=== PATIENT | female | born 1980 | race Caucasian/White ===

== ENCOUNTER 2023-07-31 01:05 | Emergency (ER) | payer OTHER, SELFPAY ==
--- NOTE | ~2023-07-31 | XR_ITS ---
XR chest 2V DATE: 07/31/2023 02:34 INDICATION: Chest pain TECHNIQUE: PA and lateral views COMPARISON: None FINDINGS: Normal heart size. No hilar or mediastinal enlargement. No pulmonary infiltrate or consolid ation, pleural effusion or pulmonary vascular congestion or pneumothorax is detected. Included skelet al structures are unremarkable. IMPRESSION: Negative Reviewed, dictated and finalized at location A. [employer] A[employer] IMPRESSION: Negative
--- NOTE | 2023-07-31 01:09 | ECG_ITS ---
Measurements Intervals [place] Rate: 92 P: 50 LA: 124 QRS: 34 QRSD: 85 T: 26 QT: 381 QTc: 473 Interpretive Statements SINUS RHYTHM WITH MARKED SINUS ARRHYTHMIA BORDERLINE ST ABNORMALITY- ANTERIOR LEADS BASELINE ARTIFACT- I, II, III, AVR, AVL, AVF BORDERLINE ECG NO PREVIOUS ECG AVAILABLE FOR COMPARISON Electronically Signed On 07-31-2023 9:24:03 [employer] REPAIR by Ramy Gipson D.O.
[2023-07-31 01:10] VITALS: BP 133/94; PULSE 84; RESP 19; TEMP 36.5; O2SAT 99
[2023-07-31 01:38] LABS: Basophils Absolute Auto 0.1 K/mm3 (0.0-0.1); Basophils Percent Auto 0.6 % (0.2-1.2); Eosinophils Percent Auto 0.1 % (0-4.4); Hematocrit 41.7 % (37.0-47.0); Hemoglobin 13.5 g/dL (12.0-15.0); Immature Granulocyte Absolute 0.04 K/mm3 (0.00-0.031); Immature Granulocyte Percent A 0.3 % (0-0.5); Lymphocytes Absolute Auto 1.69 K/mm3 (0.9-3.2); Lymphocytes Percent Auto 13.3 % (18.3-44.2); Mean Corpuscular HGB Conc 32.4 g/dl (32-36); Mean Corpuscular Hemoglobin 29.7 pg (26-34); Mean Corpuscular Volume 91.9 fl (80-100); Mean Platelet Volume 11.3 fl (7.4-10.4); Monocytes Absolute Auto 0.7 K/mm3 (0.1-0.6); Monocytes Percent Auto 5.5 % (2.6-8.5); Neutrophils Absolute Auto 10.2 K/mm3 (1.3-6.7); Neutrophils Percent Auto 80.2 % (45.5-73.1); Platelet Count Result 230 k/mm3 (150-375); Red Blood Count 4.54 M/mm3 (4.2-5.4); Red Cell Distribution Width 13.2 % (11.5-14.5); White Blood Count 12.7 K/mm3 (4.5-10.0)
[2023-07-31 01:49] LABS: Prothrombin Time 13.3 Seconds (11.1-14.7)
[2023-07-31 01:50] LABS: Partial Thromboplastin Time 27.3 SECONDS (22.3-36.8)
[2023-07-31] MEDS: ONDANSETRON INJ 4 MG/2 ML VIAL IV PUSH (01:51)
[2023-07-31] MEDS: MORPHINE SULFATE (*CRX) 4 MG/ML INJ IV PUSH (01:51)
[2023-07-31] MEDS: NITROGLYCERIN SL 0.4 MG TABLET SUBLINGUAL (01:52)
[2023-07-31 01:54] VITALS: BP 111/77; PULSE 90; RESP 22; O2SAT 100
[2023-07-31 01:59] LABS: Troponin I < 0.012 ng/mL (0.000-0.034)
[2023-07-31 02:00] VITALS: BP 121/82; PULSE 97; RESP 18; O2SAT 100
[2023-07-31 02:01] LABS: Alanine Aminotransferase 24 U/L (6-35); Albumin Level 4.9 g/dL (3.5-5.1); Alkaline Phosphatase 133 U/L (38-126); Anion Gap 15 mmol/L (8-16); Aspartate Amino Transferase 39 U/L (14-36); Bilirubin,Total 0.8 mg/dL (0.2-1.3); Blood Urea Nitrogen 17 mg/dL (7-17); Calcium 9.9 mg/dL (8.4-10.2); Carbon Dioxide 23 mmol/L (22-30); Chloride 103 mmol/L (98-107); Estimated CRCL calculation 66 ml/min; Estimated Glomerular Filt Rate > 60; Glucose 136 mg/dL (65-110); Lipase 49 U/L (23-300); Potassium 3.4 mmol/L (3.4-5.0); Sodium 141 mmol/L (137-145)
--- NOTE | 2023-07-31 03:29 | ED.GENADULT ---
HPI - General Adult General Chief complaint: Chest Pain Stated complaint: cp midsternal non radiating Time Seen by Provider: 07/31/23 01:16 History of Present Illness HPI narrative: This 43-year-old female who presents emergency department chief complaint of chest pain. 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 The patient reports that she had some arm tingling and muscle spasms whenever it started the patient did not have any shortness of breath denies diaphoresis did report she took some Tums nitro and reports that she took 4 baby aspirin. The patient reports that she has no prior history of cardiac disease Related Data Allergies Allergy/AdvReac Type Severity Reaction Status Date / Time No Known Allergies Allergy Verified 07/31/23 01:18 Review of Systems Review of Systems: A 10 system review of systems was completed on the patient and is negative except for what is stated in the HPI. Nursing and ancillary documentation was reviewed. Exam Narrative: GENERAL: Well-appearing, well-nourished, and in no acute distress. HEAD: Normocephalic, atraumatic. EYES: PERRLA and EOMI. ENT: Nares clear, no rhinorrhea or epistaxis. Mucous membranes moist. NECK: Supple. CHEST: Clear to auscultation. No respiratory distress. HEART: Regular rate and rhythm. No murmur heard. Normal peripheral pulses. ABDOMEN: Soft, nontender, nondistended, normal active bowel sounds. EXTREMITIES: Normal range of motion. No edema. SKIN: Warm, dry, no rash. NEURO: No focal deficits. Alert and oriented x3. PSYCH: Normal mood and affect. Course Vital Signs Vital signs: Vital Signs Temperature 36.5 C 07/31/23 01:10 Pulse Rate 84 07/31/23 01:10 Respiratory Rate 19 07/31/23 01:10 Blood Pressure 133/94 H 07/31/23 01:10 Pulse Oximetry 99 07/31/23 01:10 Oxygen Delivery Room Air 07/31/23 01:10 Temperature 36.5 C 07/31/23 01:10 Pulse Rate 79 07/31/23 03:46 Respiratory Rate 15 07/31/23 03:43 Blood Pressure 133/87 07/31/23 03:43 Pulse Oximetry 100 07/31/23 03:43 Oxygen Delivery Room Air 07/31/23 01:10 Medical Decision Making MDM Narrative Medical decision making narrative: Differential diagnosis includes ACS, atypical chest pain, reflux, esophageal spasm EKG showed no acute ischemic changes Laboratory studies were obtained showed initial troponin negative lipase was normal patient did have a slight elevation in her alkaline phosphatase and her AST was slightly elevated at 39. Delta troponin was negative. The patient is currently asymptomatic Vital Signs Vital Signs: Vital Signs Temperature 36.5 C 07/31/23 01:10 Pulse Rate 84 07/31/23 01:10 Respiratory Rate 19 07/31/23 01:10 Blood Pressure 133/94 H 07/31/23 01:10 Pulse Oximetry 99 07/31/23 01:10 Oxygen Delivery Room Air 07/31/23 01:10 Temperature 36.5 C 07/31/23 01:10 Pulse Rate 79 07/31/23 03:46 Respiratory Rate 15 07/31/23 03:43 Blood Pressure 133/87 07/31/23 03:43 Pulse Oximetry 100 07/31/23 03:43 Oxygen Delivery Room Air 07/31/23 01:10 Lab Data 07/31/23 01:32 07/31/23 01:32 Labs: Lab Results 07/31/23 07/31/23 Range/Units 01:32 04:09 WBC 12.7 H (4.5-10.0) K/mm3 RBC 4.54 (4.2-5.4) M/mm3 Hgb 13.5 (12.0-15.0) g/dL Hct 41.7 (37.0-47.0) % MCV 91.9 (80-100) fl MCH 29.7 (26-34) pg MCHC 32.4 (32-36) g/dl RDW 13.2 (11.5-14.5) % Plt Count 230 (150-375) k/mm3 MPV 11.3 H (7.4-10.4) fl Immature Gran % (Auto) 0.3 (0-0.5) % Neut % (Auto) 80.2 H (45.5-73.1) % Lymph % (Auto) 13.3 L (18.3-44.2) % Stewart % (Auto) 5.5 (2.6-8.5) % Eos % (Auto) 0.1 (0-4.4) % Baso % (Auto) 0.6 (0.2-1.2) % Lymph # (Auto) 1.69 (0.9-3.2) K/mm3 Stewart # (Auto) 0.7 H (0.1-0.6) K/mm3 Eos # (Auto) 0.0 (0-0.3) K/mm3 Baso # (Auto) 0.1 (0.0-0
[2023-07-31] MEDS: PANTOPRAZOLE SODIUM IV 40 MG VIAL IV PUSH (03:41)
[2023-07-31 03:43] VITALS: BP 133/87; PULSE 78; RESP 15; O2SAT 100
[2023-07-31 03:46] VITALS: PULSE 79
[2023-07-31 04:35] LABS: Troponin I < 0.012 ng/mL (0.000-0.034)
[2023-07-31] MEDS: BELLADONNA ALK/PHENOB ELIX 10 ML, MAG HYDROX/ALUMINUM HYD/SIMETH 30 ML, LIDOCAINE HCL 2... PO (04:36)
[2023-07-31 05:26] VITALS: BP 130/91; PULSE 83; RESP 15; O2SAT 96
== END 2023-07-31 05:55 | disposition home or self-care (01) ==
PROVIDERS: Emergency Provider Emergency Medicine
DX: R07.9 Chest pain, unspecified (principal)
CPT/HCPCS: 36415; 71046; 80053; 83690; 84484; 85025; 85610; 85730; 93005; 96374; 96375; 99284; A9270; C9113; J2270; J2405